=== PATIENT | male | born 1995 | race Caucasian/White ===

== ENCOUNTER 2023-08-25 17:59 | Emergency (ER) | payer SELFPAY ==
[2023-08-25] MEDS ORDERED: Sodium Chloride 0.9% 1,000 ML IV ONE (18:06)
[2023-08-25] MEDS ORDERED: Aspirin 81 MG Tab.Chew PO ONE (18:13)
[2023-08-25 18:14] LABS: BASOPHILS ABSOLUTE AUTO 0.06 K/uL (0.00-0.20); BASOPHILS PERCENT AUTO 0.5 % (0.0-1.0); EOSINOPHILS ABSOLUTE AUTO 0.49 K/uL (0.00-0.45); EOSINOPHILS PERCENT AUTO 4.3 % (0.0-6.0); HEMATOCRIT 50.2 % (42.0-52.0); HEMOGLOBIN 16.9 g/dL (14.0-18.0); IMMATURE GRAN ABSOLUTE AUTO 0.13 K/uL (0.00-0.05); IMMATURE GRAN PERCENT AUTO 1.1 % (0.0-0.4); LYMPHOCYTES ABSOLUTE AUTO 2.22 K/uL (1.00-4.80); LYMPHOCYTES PERCENT AUTO 19.4 % (24.0-44.0); MEAN CORPUSCULAR HGB CONC 33.7 g/dL (32.0-36.0); MEAN CORPUSCULAR VOLUME 86.3 fL (83.0-99.0); MONOCYTES ABSOLUTE AUTO 1.06 K/uL (0.00-0.80); MONOCYTES PERCENT AUTO 9.3 % (0.0-8.0); NEUTROPHILS ABSOLUTE AUTO 7.48 K/uL (1.80-7.70); NEUTROPHILS PERCENT AUTO 65.4 % (41.0-71.0); PLATELET COUNT,PLT 314 K/uL (150-400); RED BLOOD CELL COUNT 5.82 M/uL (4.52-5.90); WHITE BLOOD CELL COUNT,WBC 11.44 K/uL (3.9-11.3)
[2023-08-25 18:27] LABS: INR 1.13 (0.86-1.11); PTT,PARTIAL THROMBOPLSTIN TIME 25.5 SEC (23.9-30.7)
[2023-08-25 18:38] LABS: A/G RATIO 0.9 (0.9-1.6); ALBUMIN 3.6 g/dL (3.4-5.0); BILIRUBIN TOTAL 0.4 mg/dL (0.2-1.0); CALCIUM 8.4 mg/dL (8.5-10.1); CARBON DIOXIDE,CO2 27.3 mmol/L (21.0-32.0); CREATININE 1.5 mg/dL (0.8-1.3); EST CRCL DRUG DOSING (CG) 73.32 mL/min; PROTEIN TOTAL,TP 7.4 g/dL (6.4-8.2)
[2023-08-25 19:14] LABS: APPEARANCE,URINE CLEAR; BILIRUBIN,URINE NEGATIVE (NEGATIVE); COLOR,URINE YELLOW; GLUCOSE,URINE NEGATIVE (NEGATIVE); KETONES,URINE NEGATIVE (NEGATIVE); LEUKOCYTE ESTERASE,URINE NEGATIVE (NEGATIVE); NITRITE,URINE NEGATIVE (NEGATIVE); OCCULT BLOOD,URINE NEGATIVE (NEGATIVE); PROTEIN,URINE TRACE mg/dL (NEGATIVE)
[2023-08-25 19:26] LABS: EPITHELIAL CELLS,URINE RARE (NONE-FEW); RBC,URINE 0-3 (0-2/HPF); WBC,URINE 0-2 (0-5/HPF)
[2023-08-25 19:27] LABS: AMORPHOUS SEDIMENT,URINE LIGHT (NEGATIVE); BACTERIA,URINE FEW (NEGATIVE)
== END 2023-08-25 20:13 | disposition left against medical advice (07) ==
LOC: MW.ED 17:59
DX: R07.9 Chest pain, unspecified (principal); I10 Essential (primary) hypertension
CPT/HCPCS: 36415; 70450; 71045; 80053; 81001; 82947; 84484; 85025; 85610; 85730; 93005; 96360; 99285; A9270; J7030; 93010; 99283

== ENCOUNTER 2023-08-29 19:18 | Emergency (ER) | payer SELFPAY ==
[2023-08-29] MEDS ORDERED: Ibuprofen 600 MG Tab PO ONE (19:38)
[2023-08-29] MEDS ORDERED: Acetaminophen 325 MG Tab PO ONE (19:38)
[2023-08-29] MEDS ORDERED: Ondansetron 4 MG Tab.DIS PO ONE (19:38)
== END 2023-08-29 20:35 | disposition home or self-care (01) ==
LOC: MW.ED 19:18
DX: T54.1X1A Toxic effect of other corrosive organic compounds, accidental (unintentional), initial encounter (principal); Z79.899 Other long term (current) drug therapy
CPT/HCPCS: 71046; 99284; A9270; 99283